=== PATIENT | male | born 1945 | race Caucasian/White ===

== ENCOUNTER 2023-01-11 12:20 | Inpatient (IN) | payer OTHER ==
[2023-01-11 12:40] VITALS: BMI 24.0
[2023-01-11] MEDS ORDERED: LACTATED RINGERS SOLUTION 1000 ML INFUS.BAG IV ONE ×2 (13:22→14:58)
[2023-01-11] MEDS ORDERED: ACETAMINOPHEN INJECTION 100 ML IVPB ONE (13:39)
[2023-01-11] MEDS ORDERED: ACETAMINOPHEN 1000 MG/100 ML BAG IVPB ONE (13:45)
[2023-01-11] MEDS ORDERED: DEXTROSE 50%-WATER - 25 GM/50 ML VIAL IVPUSH ONE (13:59)
[2023-01-11] MEDS ORDERED: DEXTROSE 50%-WATER 25 GM/50 ML DISP.SYRIN ONE (14:00)
[2023-01-11 14:09] LABS: VENOUS O2 SATURATION 30.1 % (70-80); VENOUS PCO2 44.2 mmHg (38-52); VENOUS PH 7.378 (7.310-7.410)
[2023-01-11 14:15] LABS: EOS % 0.1 % (0-4.5); HEMATOCRIT 43.5 % (35.4-49); HEMOGLOBIN 13.9 GM/dL (11.7-16.9); MCH 28.6 pg (25.7-33.7); MEAN CELL VOLUME 89.4 fl (80-96); MONO % 5.9 % (3.8-10.2); PLATELET COUNT 276 10^3/uL (134-434); RBC 4.87 M/mm3 (4.00-5.60); RDW 14.1 % (11.9-15.9); WHITE BLOOD COUNT 14.6 K/mm3 (4.0-10.0)
[2023-01-11 14:31] LABS: INR 1.02 (0.83-1.09); PROTHROMBIN TIME (PATIENT) 11.8 SEC (9.7-13.0)
[2023-01-11 14:32] LABS: POTASSIUM 4.4 mmol/L (3.5-5.1)
[2023-01-11 14:33] LABS: ACTIVATED PTT 28.9 SECONDS (25.2-36.5)
[2023-01-11 14:35] LABS: BLOOD UREA NITROGEN 92.8 mg/dL (7-18)
[2023-01-11 14:38] LABS: CREATININE 4.1 mg/dL (0.55-1.3)
[2023-01-11 14:39] LABS: TOT PROT 7.2 g/dl (6.4-8.2)
[2023-01-11 14:48] LABS: BILIRUBIN,TOTAL 0.4 mg/dL (0.2-1)
[2023-01-11 14:52] LABS: MAGNESIUM 3.3 mg/dL (1.8-2.4)
[2023-01-11] MEDS ORDERED: VANCOMYCIN HCL 1,500 MG in DEXTROSE 5%-WATER - 500 ML IVPB ONE (14:56)
[2023-01-11] MEDS ORDERED: PIPERACILLIN/TAZOB 4.5 GM 4.5 GM in DEXTROSE 5%-WATER 100 ML IVPB ONE (14:57)
[2023-01-11 15:00] LABS: N-TERMINAL BNP 738.3 pg/ml (5-450)
[2023-01-11] MEDS ORDERED: PIPERACILLIN/TAZOB 4.5 GM 4.5 GM/100 ML BAG IVPB ONE (15:05)
[2023-01-11 16:31] LABS: PHOSPHOROUS 4.2 mg/dL (2.5-4.9)
[2023-01-11 17:51] LABS: EPI CELLS 7 /uL (0-25.1); HYALINE CASTS 0 /uL (0-3.1); URINE APPEARANCE CLEAR; URINE BACTERIA 10 /uL (0-1359); URINE BILIRUBIN NEGATIVE (NEGATIVE); URINE COLOR YELLOW; URINE GLUCOSE (UA) TRACE (NEGATIVE); URINE KETONE NEGATIVE (NEGATIVE); URINE LEUK ESTERASE NEGATIVE (NEGATIVE); URINE NITRITE NEGATIVE (NEGATIVE); URINE PROTEIN 1+ (NEGATIVE); URINE RBC 35 /uL (0-23.9); URINE UROBILINOGEN 0.2 mg/dL (0.2-1.0); URINE WBC 11 /uL (0-25.8)
[2023-01-11 18:12] LABS: URINE CRYSTALS MODERATE URIC ACID /hpf
[2023-01-12] MEDS: LACTATED RINGERS SOLUTION 1,000 ML/1,000 ML INFUS.BAG IV SCH ×2 (01:05→18:30)
[2023-01-12 02:26] LABS: URINE UREA NITROGEN 934 MG/DL (350-1000)
[2023-01-12] MEDS: PIPERACILLIN/TAZOB 2.25 GM 2.25 GM in DEXTROSE 5%-WATER - 50 ML IVPB SCH ×4 (02:37→12:19)
[2023-01-12] MEDS: HEPARIN NA (PORCINE) 5,000 UNITS/ML 1ML VIAL SQ SCH ×3 (06:22→21:07)
[2023-01-12 06:39] LABS: HEMATOCRIT 37.4 % (35.4-49); HEMOGLOBIN 12.2 GM/dL (11.7-16.9); MCH 29.1 pg (25.7-33.7); MCHC 32.6 g/dl (32.0-35.9); MEAN CELL VOLUME 89.4 fl (80-96); MEAN PLT VOLUME 8.8 fl (7.5-11.1); PLATELET COUNT 221 10^3/uL (134-434); RBC 4.18 M/mm3 (4.00-5.60); RDW 14.3 % (11.9-15.9); WHITE BLOOD COUNT 11.5 K/mm3 (4.0-10.0)
[2023-01-12 06:59] LABS: POTASSIUM 3.8 mmol/L (3.5-5.1)
[2023-01-12 07:01] LABS: BLOOD UREA NITROGEN 82.5 mg/dL (7-18); CALCIUM 9.1 mg/dL (8.5-10.1)
[2023-01-12 07:04] LABS: CREATININE 3.5 mg/dL (0.55-1.3)
[2023-01-12 07:06] LABS: BILIRUBIN,TOTAL 0.6 mg/dL (0.2-1); TOT PROT 5.7 g/dl (6.4-8.2)
[2023-01-13] MEDS: LACTATED RINGERS SOLUTION 1,000 ML/1,000 ML INFUS.BAG IV SCH ×3 (02:33→21:47)
[2023-01-13] MEDS: HEPARIN NA (PORCINE) 5,000 UNITS/ML 1ML VIAL SQ SCH ×3 (06:00→21:19)
[2023-01-13 12:29] LABS: BASO % 0.4 % (0-2.0); EOS % 0.6 % (0-4.5); HEMATOCRIT 34.2 % (35.4-49); HEMOGLOBIN 11.1 GM/dL (11.7-16.9); LYMPH % 19.8 % (8-40); MCH 29.4 pg (25.7-33.7); MCHC 32.6 g/dl (32.0-35.9); MEAN CELL VOLUME 90.2 fl (80-96); MEAN PLT VOLUME 8.4 fl (7.5-11.1); MONO % 7.3 % (3.8-10.2); NEUT % 71.9 % (42.8-82.8); PLATELET COUNT 204 10^3/uL (134-434); RBC 3.79 M/mm3 (4.00-5.60); RDW 14.5 % (11.9-15.9); WHITE BLOOD COUNT 7.6 K/mm3 (4.0-10.0)
[2023-01-13 13:08] LABS: POTASSIUM 4.2 mmol/L (3.5-5.1)
[2023-01-13 13:10] LABS: CALCIUM 8.6 mg/dL (8.5-10.1)
[2023-01-13 13:11] LABS: BLOOD UREA NITROGEN 63.6 mg/dL (7-18)
[2023-01-13 13:14] LABS: CREATININE 2.5 mg/dL (0.55-1.3)
[2023-01-13] MEDS ORDERED: QUEtiapine FUMARATE 25 MG TABLET PO ONE (20:44)
[2023-01-14 01:28] LABS: EPI CELLS 7 /uL (0-25.1); HYALINE CASTS 2 /uL (0-3.1); PH,URINE 6.5 (5.0-8.0); URINE APPEARANCE CLEAR; URINE BACTERIA 17 /uL (0-1359); URINE BILIRUBIN NEGATIVE (NEGATIVE); URINE COLOR YELLOW; URINE GLUCOSE (UA) NEGATIVE (NEGATIVE); URINE KETONE NEGATIVE (NEGATIVE); URINE LEUK ESTERASE TRACE (NEGATIVE); URINE NITRITE NEGATIVE (NEGATIVE); URINE PROTEIN TRACE (NEGATIVE); URINE RBC 286 /uL (0-23.9); URINE UROBILINOGEN 0.2 mg/dL (0.2-1.0); URINE WBC 14 /uL (0-25.8)
[2023-01-14] MEDS: HEPARIN NA (PORCINE) 5,000 UNITS/ML 1ML VIAL SQ SCH ×3 (05:56→21:36)
[2023-01-14] MEDS: LACTATED RINGERS SOLUTION 1,000 ML/1,000 ML INFUS.BAG IV SCH ×2 (07:30→18:49)
[2023-01-14 17:57] LABS: POTASSIUM 4.6 mmol/L (3.5-5.1)
[2023-01-14 17:59] LABS: BLOOD UREA NITROGEN 52.2 mg/dL (7-18)
[2023-01-14 18:02] LABS: CREATININE 2.3 mg/dL (0.55-1.3)
[2023-01-15] MEDS: LACTATED RINGERS SOLUTION 1,000 ML/1,000 ML INFUS.BAG IV SCH ×2 (05:00→15:42)
[2023-01-15] MEDS: HEPARIN NA (PORCINE) 5,000 UNITS/ML 1ML VIAL SQ SCH ×3 (06:18→22:04)
[2023-01-15 07:25] LABS: POTASSIUM 4.6 mmol/L (3.5-5.1)
[2023-01-15 07:31] LABS: CALCIUM 8.3 mg/dL (8.5-10.1)
[2023-01-15 07:32] LABS: ALBUMIN 2.5 g/dl (3.4-5.0)
[2023-01-15 07:34] LABS: CREATININE 2.8 mg/dL (0.55-1.3)
[2023-01-15 07:36] LABS: BILIRUBIN,TOTAL 0.3 mg/dL (0.2-1); TOT PROT 4.9 g/dl (6.4-8.2)
[2023-01-16] MEDS: HEPARIN NA (PORCINE) 5,000 UNITS/ML 1ML VIAL SQ SCH ×3 (06:17→21:16)
[2023-01-16] MEDS: LACTATED RINGERS SOLUTION 1,000 ML/1,000 ML INFUS.BAG IV SCH (06:48)
[2023-01-17] MEDS: HEPARIN NA (PORCINE) 5,000 UNITS/ML 1ML VIAL SQ SCH ×3 (05:55→22:03)
[2023-01-17] MEDS: TAMSULOSIN HCL 0.4 MG CAP PO SCH (08:33)
[2023-01-17 11:55] LABS: POTASSIUM 4.5 mmol/L (3.5-5.1)
[2023-01-17 11:58] LABS: CALCIUM 8.3 mg/dL (8.5-10.1)
[2023-01-17 11:59] LABS: ALBUMIN 2.4 g/dl (3.4-5.0); BLOOD UREA NITROGEN 33.9 mg/dL (7-18)
[2023-01-17 12:02] LABS: CREATININE 1.9 mg/dL (0.55-1.3)
[2023-01-17 12:03] LABS: BILIRUBIN,TOTAL 0.3 mg/dL (0.2-1)
[2023-01-18] MEDS: HEPARIN NA (PORCINE) 5,000 UNITS/ML 1ML VIAL SQ SCH ×2 (05:18→14:44)
[2023-01-18 08:55] LABS: HEMATOCRIT 30.7 % (35.4-49); HEMOGLOBIN 10.1 GM/dL (11.7-16.9); MCH 29.4 pg (25.7-33.7); MCHC 32.8 g/dl (32.0-35.9); MEAN CELL VOLUME 89.6 fl (80-96); MEAN PLT VOLUME 7.4 fl (7.5-11.1); PLATELET COUNT 291 10^3/uL (134-434); RBC 3.43 M/mm3 (4.00-5.60); RDW 14.5 % (11.9-15.9)
[2023-01-18 09:26] LABS: POTASSIUM 4.8 mmol/L (3.5-5.1)
[2023-01-18 09:28] LABS: BLOOD UREA NITROGEN 23.2 mg/dL (7-18); CALCIUM 8.1 mg/dL (8.5-10.1)
[2023-01-18 09:29] LABS: ALBUMIN 2.5 g/dl (3.4-5.0)
[2023-01-18] MEDS: TAMSULOSIN HCL 0.4 MG CAP PO SCH (09:29)
[2023-01-18 09:32] LABS: CREATININE 1.4 mg/dL (0.55-1.3)
[2023-01-18 09:33] LABS: BILIRUBIN,TOTAL 0.2 mg/dL (0.2-1)
[2023-01-18 09:34] VITALS: RESP 18
[2023-01-18 09:34] LABS: TOT PROT 5.2 g/dl (6.4-8.2)
[2023-01-18] MEDS ORDERED: FOLIC ACID 1 MG TABLET (FP) PO SCH (10:00)
[2023-01-18] MEDS ORDERED: CYANOCOBALAMIN (VITAMIN B-12) 1000 MCG/1 ML VIAL IM SCH (10:00)
[2023-01-18 15:19] VITALS: BP 130/71; PULSE 85; TEMP 98.7
== END 2023-01-18 15:55 | DRG 557 ==
LOC: JER 12:20 → JERBED 13:56 → J4S 01-12 01:24
PROVIDERS: ADMIT Internal Medicine; ATTEND Internal Medicine
DX: M62.82 Rhabdomyolysis (principal); E43 Unspecified severe protein-calorie malnutrition; G93.41 Metabolic encephalopathy; R64 Cachexia; N17.9 Acute kidney failure, unspecified; I24.8 Other forms of acute ischemic heart disease; F05 Delirium due to known physiological condition; E86.0 Dehydration; R74.01 Elevation of levels of liver transaminase levels; R62.7 Adult failure to thrive; E88.09 Other disorders of plasma-protein metabolism, not elsewhere classified; Z68.24 Body mass index [BMI] 24.0-24.9, adult; F03.90 Unspecified dementia, unspecified severity, without behavioral disturbance, psychotic disturbance, mood disturbance, and anxiety; N18.2 Chronic kidney disease, stage 2 (mild); I35.0 Nonrheumatic aortic (valve) stenosis; R33.8 Other retention of urine; N40.0 Benign prostatic hyperplasia without lower urinary tract symptoms
CPT/HCPCS: 0241U-QW; 36415; 70450-TC; 71045-TC-FY; 72125-TC; 72170-TC-FY; 73521-TC-FY; 76775-TC; 80048; 80053; 81003; 82272; 82436; 82550; 82553; 82570; 82607; 82746; 82803; 82962; 83605; 83735; 83880; 83935; 84100; 84300; 84443; 84484; 85025; 85027; 85610; 85730; 86780; 86850; 86900; 86901; 87040; 87086; 93005; 93010; 93306-TC; 97116-GP; 97162-GP; 99285-25; J1644

== ENCOUNTER 2023-01-27 19:57 | Inpatient (IN) | payer OTHER ==
[2023-01-27] MEDS ORDERED: SODIUM CHLORIDE 0.9% 500 ML INFUS.BAG IV ONE (20:42)
[2023-01-27 21:11] LABS: BASO % 0.1 % (0-2.0); EOS % 0.1 % (0-4.5); HEMOGLOBIN 8.7 GM/dL (11.7-16.9); LYMPH % 2.5 % (8-40); MCH 29.7 pg (25.7-33.7); MCHC 33.4 g/dl (32.0-35.9); MEAN CELL VOLUME 88.8 fl (80-96); MEAN PLT VOLUME 6.4 fl (7.5-11.1); MONO % 5.8 % (3.8-10.2); NEUT % 91.5 % (42.8-82.8); PLATELET COUNT 404 10^3/uL (134-434); RBC 2.93 M/mm3 (4.00-5.60); RDW 14.5 % (11.9-15.9); VENOUS BASE EXCESS -4.7 mmol/L (-2-2); VENOUS O2 SATURATION 72.9 % (70-80); VENOUS PCO2 45.4 mmHg (38-52); VENOUS PH 7.297 (7.310-7.410); WHITE BLOOD COUNT 15.2 K/mm3 (4.0-10.0)
[2023-01-27] MEDS ORDERED: VANCOMYCIN 1 GM in D5W (PRE-DOCKED) 1,000 MG/250 ML (RESTRICTED TO ID ONLY IVPB ONE (21:13)
[2023-01-27] MEDS ORDERED: PIPERACILLIN/TAZOB 3.375 GM 3.375 GM in DEXTROSE 5%-WATER - 50 ML IVPB ONE (21:13)
[2023-01-27 21:17] LABS: INR 1.15 (0.83-1.09); PROTHROMBIN TIME (PATIENT) 13.3 SEC (9.7-13.0)
[2023-01-27] MEDS ORDERED: SODIUM CHLORIDE 1,000 ML IV STA (21:17)
[2023-01-27 21:20] LABS: ACTIVATED PTT 28.8 SECONDS (25.2-36.5)
[2023-01-27 21:25] LABS: CHLORIDE 106 mmol/L (98-107); POTASSIUM 4.5 mmol/L (3.5-5.1); SODIUM 140 mmol/L (136-145)
[2023-01-27 21:27] LABS: CALCIUM 7.9 mg/dL (8.5-10.1)
[2023-01-27 21:28] LABS: ALBUMIN 2.3 g/dl (3.4-5.0); ANION GAP 8 MMOL/L (8-16); CO2 26 mmol/L (21-32); GLUCOSE,RANDOM 98 mg/dL (74-106)
[2023-01-27 21:31] LABS: CREATININE 2.1 mg/dL (0.55-1.3); SGPT/ALT 676 U/L (13-61)
[2023-01-27 21:33] LABS: BILIRUBIN,TOTAL 0.6 mg/dL (0.2-1); TOT PROT 5.2 g/dl (6.4-8.2)
[2023-01-27] MEDS ORDERED: PIPERACILLIN/TAZOB 4.5 GM 4.5 GM/100 ML BAG IVPB ONE (21:40)
[2023-01-27 22:00] LABS: ANISOCYTOSIS 1+; MACROCYTOSIS 0
[2023-01-27] MEDS ORDERED: VANCOMYCIN/WATER FOR INJ (PEG) 1,000 MG/200 ML BAG IVPB ONE (22:25)
[2023-01-27 22:38] LABS: ALK PHOS 430 U/L (45-117); SGOT/AST 1148 U/L (15-37)
[2023-01-27 23:33] LABS: LIPASE 134 U/L (73-393)
[2023-01-28] MEDS ORDERED: SODIUM CHLORIDE 1,000 ML IV SCH (01:45)
[2023-01-28] MEDS: SODIUM CHLORIDE 1,000 ML IV SCH (01:52)
[2023-01-28 02:15] LABS: EPI CELLS 4 /uL (0-25.1); HYALINE CASTS 1 /uL (0-3.1); PH,URINE 5.5 (5.0-8.0); URINE APPEARANCE TURBID; URINE BACTERIA 1584 /uL (0-1359); URINE BILIRUBIN NEGATIVE (NEGATIVE); URINE COLOR YELLOW; URINE GLUCOSE (UA) NEGATIVE (NEGATIVE); URINE KETONE NEGATIVE (NEGATIVE); URINE LEUK ESTERASE 3+ (NEGATIVE); URINE NITRITE POSITIVE (NEGATIVE); URINE PROTEIN 2+ (NEGATIVE); URINE RBC 445 /uL (0-23.9); URINE UROBILINOGEN 0.2 mg/dL (0.2-1.0); URINE WBC 9647 /uL (0-25.8)
[2023-01-28 02:16] LABS: LACTIC ACID 4.3 mmol/L (0.4-2.0)
[2023-01-28] MEDS ORDERED: NOREPINEPHRINE BITARTRATE/D5W 8 MG/250 ML BAG IVPB ONE (02:30)
[2023-01-28] MEDS ORDERED: NOREPINEPHRINE BITARTRATE/D5W 8 MG/250 ML BAG IVPB SCH (02:30)
[2023-01-28] MEDS: PIPERACILLIN/TAZOB 4.5 GM 4.5 GM in DEXTROSE 5%-WATER 100 ML IVPB SCH ×3 (04:30→10:35)
[2023-01-28 08:05] LABS: HEMATOCRIT 23.6 % (35.4-49); HEMOGLOBIN 7.9 GM/dL (11.7-16.9); MCH 29.5 pg (25.7-33.7); MCHC 33.3 g/dl (32.0-35.9); MEAN CELL VOLUME 88.6 fl (80-96); MEAN PLT VOLUME 6.5 fl (7.5-11.1); PLATELET COUNT 366 10^3/uL (134-434); RBC 2.67 M/mm3 (4.00-5.60); RDW 14.7 % (11.9-15.9); WHITE BLOOD COUNT 19.3 K/mm3 (4.0-10.0)
[2023-01-28 08:08] LABS: POTASSIUM 4.2 mmol/L (3.5-5.1)
[2023-01-28 08:10] LABS: CALCIUM 7.8 mg/dL (8.5-10.1)
[2023-01-28 08:11] LABS: BLOOD UREA NITROGEN 42.6 mg/dL (7-18); MAGNESIUM 1.7 mg/dL (1.8-2.4)
[2023-01-28 08:14] LABS: PHOSPHOROUS 4.2 mg/dL (2.5-4.9)
[2023-01-28 08:15] LABS: BILIRUBIN,TOTAL 0.5 mg/dL (0.2-1); TOT PROT 4.7 g/dl (6.4-8.2)
[2023-01-28] MEDS: PANTOPRAZOLE SODIUM 40 MG VIAL IVPUSH SCH (09:09)
[2023-01-28] MEDS: TAMSULOSIN HCL 0.4 MG CAP PO SCH (09:09)
[2023-01-28] MEDS: FOLIC ACID 1 MG TABLET (FP) PO SCH (09:09)
[2023-01-28] MEDS: MUPIROCIN 2% TOPICAL OINTMENT FOR DECOLONIZATION NS SCH ×2 (09:10→21:25)
[2023-01-28 11:58] LABS: EPI CELLS >36 /uL (0-25.1); HYALINE CASTS 510 /uL (0-3.1); PH,URINE 5.5 (5.0-8.0); URINE APPEARANCE TURBID; URINE BACTERIA 3231 /uL (0-1359); URINE BILIRUBIN NEGATIVE (NEGATIVE); URINE COLOR YELLOW; URINE GLUCOSE (UA) NEGATIVE (NEGATIVE); URINE KETONE NEGATIVE (NEGATIVE); URINE LEUK ESTERASE 3+ (NEGATIVE); URINE NITRITE POSITIVE (NEGATIVE); URINE PROTEIN 2+ (NEGATIVE); URINE UROBILINOGEN 0.2 mg/dL (0.2-1.0); URINE WBC 40914 /uL (0-25.8)
[2023-01-28 11:59] LABS: URINE RBC 671.2 /uL (0-23.9)
[2023-01-28 12:00] LABS: YEAST POSITIVE (NEGATIVE)
[2023-01-28] MEDS ORDERED: POLYETHYLENE GLYCOL (HEALTHYLAX) 3350 17 GM PACKET PO SCH (12:15)
[2023-01-28] MEDS ORDERED: SENNOSIDES 8.6MG TABLET (FP) PO ONE (12:43)
[2023-01-28] MEDS: HEPARIN NA (PORCINE) 5,000 UNITS/ML 1ML VIAL SQ SCH ×2 (13:49→21:23)
[2023-01-28] MEDS: POLYETHYLENE GLYCOL (HEALTHYLAX) 3350 17 GM PACKET PO SCH ×2 (14:20→21:22)
[2023-01-28] MEDS ORDERED: DEXTROSE 50%-WATER 25 GM/50 ML DISP.SYRIN ONE (14:31)
[2023-01-28] MEDS ORDERED: DEXTROSE 50%-WATER - 25 GM/50 ML VIAL IVPUSH PRN (14:31)
[2023-01-28] MEDS: PIPERACILLIN/TAZOB 3.375 GM 3.375 GM in DEXTROSE 5%-WATER - 50 ML IVPB SCH (17:05)
[2023-01-28] MEDS: SENNOSIDES 8.8 MG/5 ML SYRUP PO SCH (21:22)
[2023-01-28] MEDS: CHLORHEXIDINE GLUCONATE 4% CLEANSER FOR DECOLONIZATION TP SCH (21:28)
[2023-01-29] MEDS: SODIUM CHLORIDE 1,000 ML IV SCH (01:45)
[2023-01-29] MEDS: PIPERACILLIN/TAZOB 3.375 GM 3.375 GM in DEXTROSE 5%-WATER - 50 ML IVPB SCH ×3 (01:48→17:18)
[2023-01-29] MEDS: HEPARIN NA (PORCINE) 5,000 UNITS/ML 1ML VIAL SQ SCH ×2 (06:02→13:28)
[2023-01-29] MEDS: POLYETHYLENE GLYCOL (HEALTHYLAX) 3350 17 GM PACKET PO SCH ×3 (06:02→22:41)
[2023-01-29 07:29] LABS: BASO % 0.2 % (0-2.0); EOS % 0.4 % (0-4.5); HEMATOCRIT 23.8 % (35.4-49); HEMOGLOBIN 7.9 GM/dL (11.7-16.9); INR 1.09 (0.83-1.09); LYMPH % 6.2 % (8-40); MCH 29.9 pg (25.7-33.7); MEAN CELL VOLUME 90.4 fl (80-96); MEAN PLT VOLUME 6.9 fl (7.5-11.1); MONO % 6.2 % (3.8-10.2); PLATELET COUNT 341 10^3/uL (134-434); PROTHROMBIN TIME (PATIENT) 12.6 SEC (9.7-13.0); RBC 2.63 M/mm3 (4.00-5.60); RDW 14.6 % (11.9-15.9); WHITE BLOOD COUNT 13.3 K/mm3 (4.0-10.0)
[2023-01-29 07:32] LABS: ACTIVATED PTT 28.3 SECONDS (25.2-36.5)
[2023-01-29 07:36] LABS: POTASSIUM 3.7 mmol/L (3.5-5.1)
[2023-01-29 07:38] LABS: CALCIUM 7.5 mg/dL (8.5-10.1)
[2023-01-29 07:39] LABS: ALBUMIN 1.7 g/dl (3.4-5.0); BLOOD UREA NITROGEN 29.7 mg/dL (7-18); MAGNESIUM 1.8 mg/dL (1.8-2.4)
[2023-01-29 07:42] LABS: CREATININE 1.2 mg/dL (0.55-1.3); PHOSPHOROUS 2.9 mg/dL (2.5-4.9)
[2023-01-29 07:43] LABS: BILIRUBIN,TOTAL 0.3 mg/dL (0.2-1); TOT PROT 4.3 g/dl (6.4-8.2)
[2023-01-29] MEDS: PATIENT'S OWN MEDICATION (NON-FORMULARY) (Menthol/Zinc Oxide [Calmoseptine Ointment] 71 GM TP SCH (08:13)
[2023-01-29] MEDS: TAMSULOSIN HCL 0.4 MG CAP PO SCH (09:17)
[2023-01-29] MEDS: FOLIC ACID 1 MG TABLET (FP) PO SCH (09:17)
[2023-01-29] MEDS: PANTOPRAZOLE SODIUM 40 MG VIAL IVPUSH SCH (09:18)
[2023-01-29] MEDS: MUPIROCIN 2% TOPICAL OINTMENT FOR DECOLONIZATION NS SCH ×2 (09:18→22:40)
[2023-01-29] MEDS ORDERED: ESCITALOPRAM OXALATE 10 MG TABLET PO SCH (11:00)
[2023-01-29] MEDS: LACTATED RINGERS SOLUTION 1,000 ML/1,000 ML INFUS.BAG IV SCH (13:28)
[2023-01-29] MEDS ORDERED: MIRTAZAPINE 15 MG TABLET (FP) PO SCH (22:00)
[2023-01-29] MEDS: CHLORHEXIDINE GLUCONATE 4% CLEANSER FOR DECOLONIZATION TP SCH (22:41)
[2023-01-29] MEDS: SENNOSIDES 8.8 MG/5 ML SYRUP PO SCH (22:41)
[2023-01-30] MEDS: HEPARIN NA (PORCINE) 5,000 UNITS/ML 1ML VIAL SQ SCH ×4 (00:12→22:00)
[2023-01-30] MEDS: PIPERACILLIN/TAZOB 3.375 GM 3.375 GM in DEXTROSE 5%-WATER - 50 ML IVPB SCH ×2 (02:23→09:15)
[2023-01-30] MEDS: POLYETHYLENE GLYCOL (HEALTHYLAX) 3350 17 GM PACKET PO SCH ×2 (06:34→13:25)
[2023-01-30 08:09] LABS: BASO % 0.3 % (0-2.0); EOS % 0.4 % (0-4.5); HEMATOCRIT 26.9 % (35.4-49); LYMPH % 9.7 % (8-40); MCH 29.8 pg (25.7-33.7); MCHC 33.3 g/dl (32.0-35.9); MEAN CELL VOLUME 89.4 fl (80-96); MEAN PLT VOLUME 7.1 fl (7.5-11.1); MONO % 7.6 % (3.8-10.2); PLATELET COUNT 349 10^3/uL (134-434); RBC 3.01 M/mm3 (4.00-5.60); RDW 14.6 % (11.9-15.9); WHITE BLOOD COUNT 9.7 K/mm3 (4.0-10.0)
[2023-01-30 08:18] LABS: POTASSIUM 3.7 mmol/L (3.5-5.1)
[2023-01-30 08:20] LABS: CALCIUM 7.5 mg/dL (8.5-10.1)
[2023-01-30 08:21] LABS: ALBUMIN 1.8 g/dl (3.4-5.0); BLOOD UREA NITROGEN 17.8 mg/dL (7-18); MAGNESIUM 1.5 mg/dL (1.8-2.4)
[2023-01-30 08:24] LABS: CREATININE 0.8 mg/dL (0.55-1.3); PHOSPHOROUS 2.6 mg/dL (2.5-4.9)
[2023-01-30 08:25] LABS: BILIRUBIN,TOTAL 0.2 mg/dL (0.2-1); TOT PROT 4.5 g/dl (6.4-8.2)
[2023-01-30] MEDS: PANTOPRAZOLE SODIUM 40 MG VIAL IVPUSH SCH (09:15)
[2023-01-30] MEDS: MUPIROCIN 2% TOPICAL OINTMENT FOR DECOLONIZATION NS SCH (09:15)
[2023-01-30] MEDS: FOLIC ACID 1 MG TABLET (FP) PO SCH (09:16)
[2023-01-30] MEDS: TAMSULOSIN HCL 0.4 MG CAP PO SCH (09:27)
[2023-01-30] MEDS: LACTATED RINGERS SOLUTION 1,000 ML/1,000 ML INFUS.BAG IV SCH (12:42)
[2023-01-30] MEDS ORDERED: LACTATED RINGERS SOLUTION 1000 ML INFUS.BAG IV ONE (13:15)
[2023-01-30] MEDS: FINASTERIDE 5 MG TABLET (FP) PO SCH (13:37)
[2023-01-30] MEDS ORDERED: DEXTROSE 50%-WATER - 25 GM/50 ML VIAL IVPUSH PRN (17:49)
[2023-01-30] MEDS ORDERED: LACTATED RINGERS SOLUTION 1,000 ML/1,000 ML INFUS.BAG IV SCH (17:49)
[2023-01-30] MEDS ORDERED: TAMSULOSIN HCL 0.4 MG CAP PO SCH (22:00)
[2023-01-30] MEDS ORDERED: MUPIROCIN 2% TOPICAL OINTMENT FOR DECOLONIZATION NS SCH (22:00)
[2023-01-30] MEDS ORDERED: MIRTAZAPINE 15 MG TABLET (FP) PO SCH ×2 (22:00)
[2023-01-30] MEDS ORDERED: CHLORHEXIDINE GLUCONATE 4% CLEANSER FOR DECOLONIZATION TP SCH (22:00)
[2023-01-30] MEDS: SENNOSIDES 8.8 MG/5 ML SYRUP PO SCH (22:00)
[2023-01-31] MEDS: HEPARIN NA (PORCINE) 5,000 UNITS/ML 1ML VIAL SQ SCH ×3 (05:47→22:19)
[2023-01-31 07:49] LABS: HEMATOCRIT 25.1 % (35.4-49); HEMOGLOBIN 8.3 GM/dL (11.7-16.9); MCH 29.9 pg (25.7-33.7); MCHC 33.2 g/dl (32.0-35.9); MEAN CELL VOLUME 89.9 fl (80-96); PLATELET COUNT 324 10^3/uL (134-434); RBC 2.79 M/mm3 (4.00-5.60); RDW 14.5 % (11.9-15.9); WHITE BLOOD COUNT 7.1 K/mm3 (4.0-10.0)
[2023-01-31] MEDS ORDERED: INSULIN (LEVEMIR) 100 UNITS/ML UNITS SQ ONE (08:02)
[2023-01-31 08:20] LABS: POTASSIUM 3.6 mmol/L (3.5-5.1)
[2023-01-31 08:50] LABS: ALBUMIN 1.9 g/dl (3.4-5.0)
[2023-01-31 08:51] LABS: BLOOD UREA NITROGEN 11.7 mg/dL (7-18); CALCIUM 7.2 mg/dL (8.5-10.1)
[2023-01-31 08:52] LABS: MAGNESIUM 1.4 mg/dL (1.8-2.4)
[2023-01-31 08:53] LABS: CREATININE 0.7 mg/dL (0.55-1.3)
[2023-01-31 08:54] LABS: PHOSPHOROUS 2.8 mg/dL (2.5-4.9)
[2023-01-31 08:55] LABS: BILIRUBIN,TOTAL 0.2 mg/dL (0.2-1); TOT PROT 4.3 g/dl (6.4-8.2)
[2023-01-31 09:22] LABS: ANISOCYTOSIS 1+; MACROCYTOSIS 0
[2023-01-31] MEDS: FOLIC ACID 1 MG TABLET (FP) PO SCH (11:20)
[2023-01-31] MEDS: FINASTERIDE 5 MG TABLET (FP) PO SCH (11:20)
[2023-01-31] MEDS ORDERED: MAGNESIUM SULF 50% (8.12 MEQ/2 ML-1 GM VIAL) IVPB ONE (16:18)
[2023-01-31] MEDS: SENNOSIDES 8.8 MG/5 ML SYRUP PO SCH (22:19)
[2023-02-01] MEDS: HEPARIN NA (PORCINE) 5,000 UNITS/ML 1ML VIAL SQ SCH ×3 (05:06→22:57)
[2023-02-01 09:17] LABS: HEMATOCRIT 27.6 % (35.4-49); HEMOGLOBIN 9.3 GM/dL (11.7-16.9); MCH 29.7 pg (25.7-33.7); MCHC 33.7 g/dl (32.0-35.9); MEAN CELL VOLUME 88.3 fl (80-96); MEAN PLT VOLUME 6.5 fl (7.5-11.1); PLATELET COUNT 359 10^3/uL (134-434); RBC 3.13 M/mm3 (4.00-5.60); RDW 14.5 % (11.9-15.9); WHITE BLOOD COUNT 7.5 K/mm3 (4.0-10.0)
[2023-02-01 09:43] LABS: POTASSIUM 3.6 mmol/L (3.5-5.1)
[2023-02-01 09:47] LABS: ANISOCYTOSIS 0; HELMET CELLS 0; HOWELL-JOLLY BODIES 0; MACROCYTOSIS 0; OVALOCYTE 0; ROULEAU 0; SICKELED CELLS 0; TARGET CELLS 0; TEAR DROP CELLS 0; TOXIC GRANULATION 0
[2023-02-01 09:50] LABS: BLOOD UREA NITROGEN 10.7 mg/dL (7-18); CALCIUM 7.6 mg/dL (8.5-10.1); MAGNESIUM 1.8 mg/dL (1.8-2.4)
[2023-02-01 09:53] LABS: CREATININE 0.6 mg/dL (0.55-1.3)
[2023-02-01 09:55] LABS: BILIRUBIN,TOTAL 0.2 mg/dL (0.2-1); TOT PROT 4.7 g/dl (6.4-8.2)
[2023-02-01] MEDS: FINASTERIDE 5 MG TABLET (FP) PO SCH (10:00)
[2023-02-01] MEDS: FOLIC ACID 1 MG TABLET (FP) PO SCH (10:00)
[2023-02-01] MEDS: SENNOSIDES 8.8 MG/5 ML SYRUP PO SCH (22:57)
[2023-02-02] MEDS: HEPARIN NA (PORCINE) 5,000 UNITS/ML 1ML VIAL SQ SCH ×3 (06:12→21:29)
[2023-02-02 08:22] LABS: POTASSIUM 3.7 mmol/L (3.5-5.1)
[2023-02-02 08:23] LABS: HEMATOCRIT 24.6 % (35.4-49); HEMOGLOBIN 8.1 GM/dL (11.7-16.9); MCH 29.6 pg (25.7-33.7); MEAN CELL VOLUME 89.7 fl (80-96); MEAN PLT VOLUME 7.3 fl (7.5-11.1); PLATELET COUNT 433 10^3/uL (134-434); RBC 2.75 M/mm3 (4.00-5.60); RDW 14.5 % (11.9-15.9); WHITE BLOOD COUNT 10.4 K/mm3 (4.0-10.0)
[2023-02-02 08:24] LABS: CALCIUM 7.6 mg/dL (8.5-10.1)
[2023-02-02 08:25] LABS: ALBUMIN 2.1 g/dl (3.4-5.0); BLOOD UREA NITROGEN 10.8 mg/dL (7-18); MAGNESIUM 1.6 mg/dL (1.8-2.4)
[2023-02-02 08:28] LABS: CREATININE 0.8 mg/dL (0.55-1.3)
[2023-02-02 08:29] LABS: BILIRUBIN,TOTAL 0.2 mg/dL (0.2-1)
[2023-02-02 08:30] LABS: TOT PROT 4.7 g/dl (6.4-8.2)
[2023-02-02 09:17] LABS: ANISOCYTOSIS 2+; MACROCYTOSIS 0
[2023-02-02] MEDS: FOLIC ACID 1 MG TABLET (FP) PO SCH (10:17)
[2023-02-02] MEDS: FINASTERIDE 5 MG TABLET (FP) PO SCH (10:17)
[2023-02-03] MEDS: HEPARIN NA (PORCINE) 5,000 UNITS/ML 1ML VIAL SQ SCH ×3 (05:52→21:49)
[2023-02-03 09:45] LABS: HEMATOCRIT 27.8 % (35.4-49); HEMOGLOBIN 9.7 GM/dL (11.7-16.9); MCH 30.4 pg (25.7-33.7); MCHC 34.8 g/dl (32.0-35.9); MEAN CELL VOLUME 87.2 fl (80-96); MEAN PLT VOLUME 6.7 fl (7.5-11.1); PLATELET COUNT 417 10^3/uL (134-434); RBC 3.19 M/mm3 (4.00-5.60); RDW 14.7 % (11.9-15.9); WHITE BLOOD COUNT 9.5 K/mm3 (4.0-10.0)
[2023-02-03 10:05] LABS: POTASSIUM 3.9 mmol/L (3.5-5.1)
[2023-02-03 10:09] LABS: ALBUMIN 2.2 g/dl (3.4-5.0)
[2023-02-03 10:10] LABS: BLOOD UREA NITROGEN 12.5 mg/dL (7-18); MAGNESIUM 1.5 mg/dL (1.8-2.4)
[2023-02-03 10:12] LABS: CREATININE 0.8 mg/dL (0.55-1.3)
[2023-02-03 10:14] LABS: BILIRUBIN,TOTAL 0.2 mg/dL (0.2-1); TOT PROT 4.9 g/dl (6.4-8.2)
[2023-02-03] MEDS: FINASTERIDE 5 MG TABLET (FP) PO SCH (10:32)
[2023-02-03] MEDS: FOLIC ACID 1 MG TABLET (FP) PO SCH (10:33)
[2023-02-03 10:51] LABS: ANISOCYTOSIS 1+; MACROCYTOSIS 0; OVALOCYTE 1+
[2023-02-03 16:36] VITALS: BMI 21.2
[2023-02-04] MEDS: HEPARIN NA (PORCINE) 5,000 UNITS/ML 1ML VIAL SQ SCH ×3 (06:54→21:28)
[2023-02-04] MEDS: FINASTERIDE 5 MG TABLET (FP) PO SCH (09:26)
[2023-02-04] MEDS: FOLIC ACID 1 MG TABLET (FP) PO SCH (09:27)
[2023-02-04 09:51] LABS: HEMATOCRIT 28.6 % (35.4-49); HEMOGLOBIN 9.7 GM/dL (11.7-16.9); MCH 30.6 pg (25.7-33.7); MCHC 34.1 g/dl (32.0-35.9); MEAN CELL VOLUME 89.6 fl (80-96); MEAN PLT VOLUME 7.1 fl (7.5-11.1); PLATELET COUNT 467 10^3/uL (134-434); RBC 3.19 M/mm3 (4.00-5.60); RDW 14.8 % (11.9-15.9); WHITE BLOOD COUNT 8.7 K/mm3 (4.0-10.0)
[2023-02-04 10:11] LABS: POTASSIUM 4.3 mmol/L (3.5-5.1)
[2023-02-04 10:18] LABS: CALCIUM 7.9 mg/dL (8.5-10.1)
[2023-02-04 10:19] LABS: ALBUMIN 2.4 g/dl (3.4-5.0); BLOOD UREA NITROGEN 11.5 mg/dL (7-18)
[2023-02-04 10:22] LABS: ANISOCYTOSIS 1+; CREATININE 0.9 mg/dL (0.55-1.3); MACROCYTOSIS 0
[2023-02-04 10:23] LABS: BILIRUBIN,TOTAL 0.6 mg/dL (0.2-1); TOT PROT 5.2 g/dl (6.4-8.2)
[2023-02-05] MEDS: HEPARIN NA (PORCINE) 5,000 UNITS/ML 1ML VIAL SQ SCH ×3 (05:27→22:24)
[2023-02-05] MEDS: FOLIC ACID 1 MG TABLET (FP) PO SCH (09:35)
[2023-02-05] MEDS: FINASTERIDE 5 MG TABLET (FP) PO SCH (09:35)
[2023-02-05] MEDS ORDERED: TAMSULOSIN HCL 0.4 MG CAP PO ONE (13:19)
[2023-02-05 18:00] VITALS: RESP 18
[2023-02-06] MEDS: HEPARIN NA (PORCINE) 5,000 UNITS/ML 1ML VIAL SQ SCH ×2 (06:11→13:28)
[2023-02-06] MEDS ORDERED: MAGNESIUM SULF 50% (8.12 MEQ/2 ML-1 GM VIAL) IVPB ONE (06:50)
[2023-02-06] MEDS: FINASTERIDE 5 MG TABLET (FP) PO SCH (09:17)
[2023-02-06] MEDS: FOLIC ACID 1 MG TABLET (FP) PO SCH (09:17)
[2023-02-06 13:28] VITALS: BP 113/65; PULSE 73; TEMP 98.5
== END 2023-02-06 14:42 | DRG 871 ==
LOC: JER 19:57 → JERBED 01-28 00:04 → JICU 01-28 06:52 → J7W 01-30 16:35
PROVIDERS: ADMIT Internal Medicine Pulmonary Disease; ATTEND Internal Medicine
DX: A41.51 Sepsis due to Escherichia coli [E. coli] (principal); E43 Unspecified severe protein-calorie malnutrition; R65.21 Severe sepsis with septic shock; G93.41 Metabolic encephalopathy; J18.9 Pneumonia, unspecified organism; J98.11 Atelectasis; N17.9 Acute kidney failure, unspecified; N39.0 Urinary tract infection, site not specified; N13.30 Unspecified hydronephrosis; E87.20 Acidosis, unspecified; R64 Cachexia; I10 Essential (primary) hypertension; D64.9 Anemia, unspecified; E78.5 Hyperlipidemia, unspecified; N40.0 Benign prostatic hyperplasia without lower urinary tract symptoms; E83.42 Hypomagnesemia; R74.01 Elevation of levels of liver transaminase levels; Z68.21 Body mass index [BMI] 21.0-21.9, adult; D72.829 Elevated white blood cell count, unspecified
CPT/HCPCS: 0241U-QW; 36415; 71045-TC-FY; 74176-TC; 76705-TC; 80048; 80053; 81003; 82140; 82272; 82550; 82553; 82570; 82607; 82803; 82962; 83605; 83690; 83735; 84100; 84300; 84443; 84484; 85025; 85027; 85610; 85730; 86780; 86850; 86900; 86901; 87040; 87081; 87086; 87186; 87899; 93005; 93010; 97116-GP; 97161-GP; 99285-25; J1644